=== PATIENT | female | born 1970 | race American Indian/Alaskan Native ===

== ENCOUNTER 2023-02-10 05:36 | Emergency (ER) | payer MEDICAID ==
[2023-02-10] MEDS ORDERED: IPRATROPIUM/ALBUTEROL 3 ML NEB INH STA (06:27)
[2023-02-10 07:13] LABS: B. PARAPERTUSSIS- RESP PCR PAN NOT DETECTED; B. PERTUSSIS- RESP PCR PANEL NOT DETECTED; C. PNEUMONIAE- RESP PCR PANEL NOT DETECTED; CORONAVIRUS 229E-RESP PCR NOT DETECTED; CORONAVIRUS HKU1-RESP PCR NOT DETECTED; CORONAVIRUS NL63-RESP PCR NOT DETECTED; CORONAVIRUS OC43-RESP PCR NOT DETECTED; HUMAN METAPNEUMOVIRUS NOT DETECTED; INFLUENZA A- RESP PCR PANEL NOT DETECTED; INFLUENZA B - RESP PCR PANEL NOT DETECTED; M. PNEUMONIAE- RESP PCR PANEL NOT DETECTED; PARAINFLUENZA VIRUS 1 NOT DETECTED; PARAINFLUENZA VIRUS 2 NOT DETECTED; PARAINFLUENZA VIRUS 3 NOT DETECTED; PARAINFLUENZA VIRUS 4 NOT DETECTED; RHINOVIRUS/ENTEROVIRUS NOT DETECTED; RSV- RESP PCR PANEL NOT DETECTED; SARS-CoV-2 -RESP PCR PANEL NOT DETECTED
[2023-02-10] MEDS ORDERED: predniSONE 20 MG TABLET PO STA (07:23)
[2023-02-10] MEDS ORDERED: AMOX/CLAV 875 MG/125 MG TABLET PO STA (07:25)
--- NOTE | 2023-02-10 07:29 | ED Physician Documentation ---
PD HPI DYSPNEA - Stated complaint Stated Complaint: SOB - Chief complaint Chief Complaint: Resp - History obtained from History obtained from: Patient - Additional information Additional information: Patient is a 52-year-old female with a history of asthma presenting for evaluation of shortness of breath, productive cough, sinus tenderness for the past 2 weeks. Patient states this started 2 weeks ago as she has been moving into a new home and there were cats previously living in the home. She reports that some of her items are also myriam She has had just in her face when unpacking boxes. She does have an albuterol inhaler but it was running low States that it was run over this morning. She has a nebulizer machine At her home in [place] but has not been able to get it. She denies any known sick contacts. She did take a COVID test at home which was negative. She does not have a local PCP. Review of Systems Constitutional: denies: Fever Cardiac: denies: Chest pain / pressure Respiratory: reports: Dyspnea, Cough GI: denies: Abdominal Pain, Vomiting Musculoskeletal: denies: Extremity swelling PD PAST MEDICAL HISTORY - Past Medical History Past Medical History: Yes Respiratory: Asthma - Past Surgical History Past Surgical History: No - Present Medications Home Medications: Ambulatory Orders Medication Instructions Recorded Confirmed Albuterol Sulf [Ventolin Hfa 1 - 2 puffs INH Q4HR PRN #1 each 02/10/23 Inhaler] Amox/Clav 875/125 [Augmentin] 1 each PO Q12H #14 tablet 02/10/23 predniSONE [Deltasone] 60 mg PO DAILY 4 Days #12 tablet 02/10/23 - Allergies Allergies/Adverse Reactions: Allergies Allergy/AdvReac Type Severity Reaction Status Date / Time bupropion Allergy Anaphylaxis Verified 02/10/23 06:05 ibuprofen Allergy Respiratory Verified 02/10/23 06:05 morphine Allergy Hives Verified 02/10/23 06:05 nortriptyline Allergy Respiratory Verified 02/10/23 06:05 NSAIDS (Non-Steroidal Allergy Respiratory Verified 02/10/23 06:05 Anti-Inflamma tramadol Allergy Hives Verified 02/10/23 06:05 alcohol AdvReac Unknown Verified 02/10/23 06:05 buspirone AdvReac Unknown Verified 02/10/23 06:05 citalopram AdvReac Anxiety Verified 02/10/23 06:05 doxycycline AdvReac Unknown Verified 02/10/23 06:05 metoclopramide AdvReac Anxiety Verified 02/10/23 06:05 promethazine [From Phenergan] AdvReac Unknown Verified 02/10/23 06:05 sertraline AdvReac Unknown Verified 02/10/23 06:05 - Social History Does the pt smoke?: No Smoking Status: Never smoker Does the pt drink ETOH?: No - Immunizations Immunizations are current?: Yes - POLST Patient has POLST: No PD ED PE NORMAL - General General: Alert and oriented X 3, No acute distress, Well developed/nourished - HEENT HEENT: Atraumatic, Moist mucous membranes, Pharynx benign, Other (Tenderness over bilateral maxillary sinuses with no overlying erythema or facial swelling) - Neck Neck: Supple, no meningeal sign - Cardiac Cardiac: RRR, No murmur - Respiratory Respiratory: No respiratory distress, Clear bilaterally, Other (Mild end expiratory wheeze) - Derm Derm: Warm and dry - Extremities Extremities: No edema, No calf tenderness / cord - Neuro Neuro: Normal speech Results - Vitals Vitals: Vital Signs - 24 hr 02/10/23 02/10/23 02/10/23 05:46 05:50 06:40 Temperature 36.6 C Heart Rate 79 80 88 Respiratory 25 H 20 20 Rate Blood Pressure 158/84 H O2 Saturation 97 99 02/10/23 07:34 Temperature Heart Rate 72 Respiratory 16 Rate Blood Pressure 113/86 H O2 Saturation 95 Oxygen O2 Source Room air - Labs Labs: Laboratory Tests 02/10/23 06:19 Nasal Adenovirus (PCR) NOT DETECTED Nasal B. parapertussis DNA (PCR) NOT DETECTED Nasal Coronavir 229E PCR NOT DETECTED Nasal Coronavir HKU1 PCR NOT DETECTED Nasal Coronavir NL63 PCR NOT DETECTED Nasal Coronavir OC43 PCR NOT DETECTED Nasal Enterovir/Rhinovir PCR NOT DETECTED Nasal Influenza B PCR NOT DETECTED Nasal Influenza A PCR NOT DETECTED Nasal Parainfluen 1 PCR NOT DETECTED Nasal Parainfluen 2 PCR NOT DETECTED Nasal Parainfluen 3 PCR NOT DETECTED Nasal Parainfluen 4 PCR NOT DETECTED Nasal RSV (PCR) NOT DETECTED Nasal B.pertussis DNA PCR NOT DETECTED Nasal C.pneumoniae (PCR) NOT DETECTED [facility] Human Metapneumo PCR NOT DETECTED Nasal M.pneumoniae (PCR) NOT DETECTED Nasal SARS-CoV-2 (PCR) NOT DETECTED PD Medical Decision Making - ED course Complexity details: reviewed results, d/w patient ED course: Patient is a 52-year-old female presenting for evaluation of cough and feeling short of breath with sinus congestion for the past 2 weeks in the setting of recent move and known asthma history. Her vital signs appear stable. She was given a DuoNeb by overnight physician prior to my arrival.Chest x-ray and a respiratory swab were also obtained. Patient reports feeling better after the neb.I reviewed her chest x-ray and see no signs of pneumonia or effusion. Her respiratory swab is negative for tested viruses.Patient appears to have a sinusitis which has been ongoing for the past 2 weeks. Patient is agreeable to a course of antibiotics. We will also start on prednisone for asthma exacerbation and will refill inhaler. The patient does not have a local PCP and was given information for the [place] walk-in clinic. She is also advised on concerning symptoms to return for. Departure - Departure Disposition: 01 Home, Self Care Clinical Impression: Sinusitis, Bronchitis Condition: Stable Instructions: ED Bronchitis Asthmatic, ED Sinusitis Abx Tx Follow-Up: Primary/Walk In [place] [Provider Group] Prescriptions: Albuterol Sulf [Ventolin Hfa Inhaler] 1 - 2 puffs INH Q4HR PRN #1 each PRN Reason: Shortness Of Air/Wheezing Amox/Clav 875/125 [Augmentin] 1 each PO Q12H #14 tablet predniSONE [Deltasone] 60 mg PO DAILY 4 Days #12 tablet Comments: Your chest x-ray at this time does not show pneumonia. Your respiratory swab is negative for viruses. I am starting you on an antibiotic With a sinus infection. I am also starting you on a course of prednisone to help with the bronchitis and will refill your inhaler. These prescriptions were sent to [facility].There are local area walk-in clinics I would recommend utilizing until you are able to establish care with a primary care provider. If anytime you have worsening symptoms please consider return to the emergency department. Discharge Date/Time: 02/10/23 07:39
[2023-02-10 07:35] VITALS: BP 113/86
--- NOTE | 2023-02-10 07:44 | XRAY Report ---
PROCEDURE: Chest 1 View X-Ray INDICATIONS: SOA TECHNIQUE: One view of the chest was acquired. COMPARISON: None. FINDINGS: Surgical changes and devices: None. Lungs and pleura: No pleural effusions or pneumothorax. Lungs are clear. Mediastinum: Mediastinal contours appear normal. Heart size is normal. Bones and chest wall: No suspicious bony lesions. Overlying soft tissues appear unremarkable. IMPRESSION: No acute cardiopulmonary disease. No significant discrepancy with the preliminary interpretation. Reviewed by: Chaim Otoole MD on 02/10/2023 7:42 AM PDT Approved by: Chaim Otoole MD on 02/10/2023 7:42 AM PDT Station ID: [id number]
== END 2023-02-10 07:39 | disposition home or self-care (01) ==
LOC: ED 05:36
DX: J32.9 Chronic sinusitis, unspecified (principal); J40 Bronchitis, not specified as acute or chronic; Z20.822 Contact with and (suspected) exposure to COVID-19
CPT/HCPCS: 71045; 87633; 94640; 99283; 99284; A9270; J7512